=== PATIENT | female | born 1935 | race Caucasian/White ===

== ENCOUNTER → 2016-12-11 | Outpatient (CLI) | payer MEDICARE | END | disposition home or self-care (01) | LOC: RAD 09:32 | PROVIDERS: ATTEND Internal Medicine Gastroenterology | DX: Z51.89 Encounter for other specified aftercare (principal); K21.9 Gastro-esophageal reflux disease without esophagitis; K22.4 Dyskinesia of esophagus; K29.40 Chronic atrophic gastritis without bleeding; R13.12 Dysphagia, oropharyngeal phase; M25.78 Osteophyte, vertebrae | CPT/HCPCS: 74230 ==

== ENCOUNTER → 2016-12-23 | Outpatient (CLI) | payer MEDICARE | END | disposition home or self-care (01) | LOC: RAD 09:43 | PROVIDERS: ATTEND Internal Medicine Endocrinology, Diabetes & Metabolism | DX: E03.9 Hypothyroidism, unspecified (principal); E05.00 Thyrotoxicosis with diffuse goiter without thyrotoxic crisis or storm | CPT/HCPCS: 79005; A9517 ==

== ENCOUNTER 2018-11-03 16:38 | Emergency (ER) | payer MEDICARE ==
[~2018-11-03] VITALS: Ht 162.6 cm; Wt 74.2 kg
--- NOTE | 2018-11-03 17:35 | NUR ---
PT GIVEN WARM BLANKET, CALL LIGHT WITHIN REACH. ICE PACK PROVIDED, HAND ELEVATED ON PILLOW.
[2018-11-03] MEDS ORDERED: MORPHINE SULFATE 4 MG/ML, 1ML ONE (17:52)
[2018-11-03] MEDS: MORPHINE SULFATE 4 MG/ML, 1ML IVPush PRN ×2 (17:55→18:15)
[2018-11-03] MEDS ORDERED: SODIUM CHLORIDE FLUSH 10ML SYR IVF ONE (18:00)
[2018-11-03] MEDS ORDERED: ONDANSETRON 2MG/ML, 2ML IVPush ONE (18:00)
--- NOTE | 2018-11-03 18:00 | NUR ---
XRAY COMPLETED. IV PLACED, LABS DRAWN WITH START. MORPHINE GIVEN FOR 9/10 R HAND PAIN. PT PLACED ON BP CUFF, PULSE OX. CALL LIGHT WITHIN REACH.
[2018-11-03 18:14] LABS: BASOPHILS # (AUTO) 0.07 x10^3/uL (0-0.1); BASOPHILS % (AUTO) 1 % (0-1); EOSINOPHILS # (AUTO) 0.62 x10^3/uL (0-0.4); EOSINOPHILS % (AUTO) 8 % (1-7); LYMPHOCYTES # (AUTO) 2.21 x10^3/uL (1-3.4); LYMPHOCYTES % (AUTO) 29 % (22-44); MD NO; MEAN CORPUSCULAR HEMOGLOBIN 32.9 pg (27.0-34.8); MEAN CORPUSCULAR HGB CONC 33.9 g/dL (32.4-35.8); MEAN CORPUSCULAR VOLUME 96.9 fL (80-100); MEAN PLATELET VOLUME 8.5 fL (7.4-10.4); MONOCYTES # (AUTO) 0.61 x10^3/uL (0.2-0.8); MONOCYTES % (AUTO) 8 % (2-9); NEUTROPHILS # (AUTO) 4.15 x10^3/uL (1.8-6.8); NEUTROPHILS % (AUTO) 54 % (42-75); PLATELET COUNT 253 x10^3/uL (130-400); RED BLOOD COUNT 3.99 x10^6/uL (3.82-5.3); RED CELL DISTRIBUTION WIDTH 13.1 % (9.6-15.2)
[2018-11-03 18:22] LABS: INTERNATIONAL NORMALIZED RATIO 1.29 (0.93-1.1); PROTHROMBIN TIME 13.5 Seconds (9.6-11.5)
[2018-11-03 18:23] LABS: ALBUMIN 3.7 g/dL (3.4-5.0); ANION GAP 8 mmol/L (5-15); CHLORIDE 111 mmol/L (98-107); CREATININE 1.06 mg/dL (0.55-1.02)
[2018-11-03 19:38] VITALS: BP 136/78
== END 2018-11-03 19:45 | disposition home or self-care (01) ==
LOC: ED 19:42
DX: S60.221A Contusion of right hand, initial encounter (principal); I48.91 Unspecified atrial fibrillation; I10 Essential (primary) hypertension; X58.XXXA Exposure to other specified factors, initial encounter; Y93.89 Activity, other specified; Y92.89 Other specified places as the place of occurrence of the external cause; Y99.8 Other external cause status
CPT/HCPCS: 29125; 36415; 80048; 82040; 85025; 85610; 85730; 96374